=== PATIENT | female | born 1980 | race Caucasian/White ===

== ENCOUNTER 2016-08-21 17:18 | Emergency (ER) | payer OTHER ==
[~2016-08-21] VITALS: Ht 162.6 cm; Wt 91.2 kg
[2016-08-21] MEDS ORDERED: PRED20TA PO (17:40)
[2016-08-21] MEDS ORDERED: methylPREDNISolone 1,000 MG, VIAL MATE ADAPTER 1 EACH in D5W 250 ML IV ONE (18:45)
[2016-08-21 19:17] LABS: BASO # 0.1 K/mm3 (0.0-0.2); BASO % 0.7 % (0.0-1.0); EOS # 0.2 K/mm3 (0.0-0.50); EOS % 1.4 % (0.0-3.0); LARGE UNSTAINED CELL # 0.1 K/mm3 (0.0-0.4); LARGE UNSTAINED CELL % 1.1 % (0.0-4.0); LYMPH # 3.7 K/mm3 (1.5-4.5); LYMPH % 27.7 % (24.0-44.0); MEAN CORPUSCULAR HEMOGLOBIN 31.9 pg (27.0-33.0); MEAN CORPUSCULAR HGB CONC 35.5 g/dl (32.0-36.5); MEAN CORPUSCULAR VOLUME 90.1 fl (80.0-96.0); MONO # 0.7 K/mm3 (0.0-0.8); MONO % 4.9 % (0.0-5.0); NEUTROPHILS # 8.5 K/mm3 (1.8-7.7); NEUTROPHILS % 64.2 % (36.0-66.0); PLATELET COUNT, AUTOMATED 266 k/mm3 (150-450); RED CELL DISTRIBUTION WIDTH 11.9 % (11.5-14.5); WHITE BLOOD COUNT 13.3 K/mm3 (4.0-10.0)
[2016-08-21 20:08] LABS: ERYTHROCYTE SEDIMENTATION RATE 24 mm/hr (0-20)
--- NOTE | 2016-08-21 21:30 | REPUSA ---
CLINICAL HISTORY: Acute retrobulbar optic neuritis right eye. TECHNIQUE: MRI of the brain was performed utilizing multiple sequences in axial, coronal and sagitta l planes without and with IV contrast material. Diffusion weighted sequences obtained. COMMENTS: The sella and parasellar region are unremarkable in appearance. The corpus callosum and cerebellar t onsils are of normal configuration and position. There are no intra or extra-axial collections. The re is no mass effect or midline shift. There is no evidence of hematoma formation. There is no hydr ocephalus. There is no evidence of restricted diffusion. The visualized arterial structures demonstrate normal appearing flow voids. The seventh and eighth n erve bundles are visualized and are unremarkable in appearance. There is no suspicious signal abnorm ality in the infra or supratentorial space. Note is made of numerous foci of T2 and FLAIR hyperintensity in the periventricular and subcortical w vlad matter. There is also involvement of corpus callosum.Some lesions demonstrate perpendicular conf iguration with respect to lateral ventricles. The lesion measures up to 10 mm in length. These are most compatible with demyelinating disease. On post gadolinium sequences, note is made of enhancement of several lesions especially in the right frontoparietal lobe. This is compatible with grossly acu te or subacute process. There is minimal mucosal thickening involving bilateral ethmoid and maxillary sinus compatible with m ild sinusitis. IMPRESSION: Findings most compatible with demyelinating disease, acute vs subacute. Clinical correlation is rec ommended. Thank you for your kind referral of this patient. We appreciate the opportunity to participate in thi s patient's care.
--- NOTE | 2016-08-21 21:30 | REPUSA ---
CLINICAL HISTORY: ACUTE RETOBULBAR OPTIC NEURITIS RT EYE TECHNIQUE: MRI of the orbits was performed utilizing multiple sequences in axial, coronal and sagitta l planes without and with IV contrast material. COMMENTS: The sella and parasellar region are unremarkable in appearance. The corpus callosum and cerebellar to nsils are of normal configuration and position. There are no intra or extra-axial collections. There is no mass effect or midline shift. There is no evidence of hematoma formation. There is no hydroceph alus. The visualized arterial structures demonstrate normal appearing flow voids. The seventh and eighth ne rve bundles are visualized and are unremarkable in appearance. There are no suspicious signal abnorma lities within the infra or supratentorial space. The globes of the eyes disclose bilaterally symmetrical size and shape and normal appearance of the v arious layers. The intraocular lenses and the vitreous are unremarkable. The orbits show bilaterally symmetrical shape. The orbital fat and the intraorbital portions of the optic nerves are bilaterally symmetric and normal in size, shape and course. The extraocular muscles are unremarkable. Note is made of numerous foci of T2 and FLAIR hyperintensity in the periventricular and subcortical white matter. There is also involvement of corpus callosum.Some lesions demonstrate perpendicular configuration with respect to lateral ventricles. The lesion measures up to 10 mm in length. These are most compatible with demyelinating disease. On post gadolinium sequences, note is made of enhancement of several lesions especially in the right frontoparietal lobe. This is compatible with grossly acute or subacute process. The intracranial visual pathways show no abnormality. The optic chiasm and visualized portions of the optic tracts are normal. There is minimal mucosal thickening involving bilateral ethmoid and maxillary sinus compatible with m ild sinusitis. IMPRESSION: Sinusitis. The eyes, including the intraorbital portions of the optic nerves and the extraocular muscles are nor mal and symmetrical. Findings most compatible with demyelinating disease, acute vs subacute. Clinical correlation is recommended. Thank you for your kind referral of this patient.(
[2016-08-21 21:44] LABS: ANION GAP 8 MEQ/L (8-16); BLOOD UREA NITROGEN 12 MG/DL (7-18); CALCIUM LEVEL 8.7 MG/DL (8.5-10.1); CARBON DIOXIDE LEVEL 25 MEQ/L (21-32); CHLORIDE LEVEL 103 MEQ/L (98-107); CREATININE FOR GFR 0.86 MG/DL (0.55-1.02); GLOMERULAR FILTRATION RATE > 60.0 (>60); GLUCOSE, FASTING 82 MG/DL (70-105); POTASSIUM SERUM 3.8 MEQ/L (3.5-5.1); SODIUM LEVEL 136 MEQ/L (136-145)
[2016-08-21 21:59] VITALS: BP 138/72
[2016-08-24 00:06] LABS: Lyme Disease IgG/IgM Antibodie <0.91 ISR (0.00-0.90); Lyme Disease IgM Ab Quantitati <0.80 index (0.00-0.79); T PALLIDUM AB (FTA-AB) Non Reactive (Non Reactive)
== END 2016-08-21 22:05 | disposition home or self-care (01) ==
LOC: M ED 18:01
DX: H46.11 Retrobulbar neuritis, right eye (principal)
CPT/HCPCS: 70543; 70553; 80048; 83520; 85025; 85652; 86617; 86780; 96374; 99283; A9576; J2930

== ENCOUNTER 2016-08-22 17:37 | Emergency (ER) | payer OTHER ==
[~2016-08-22] VITALS: Ht 162.6 cm; Wt 91.6 kg
[~2016-08-22 17:37] MED LIST: PRED20TA PO
[2016-08-22] MEDS ORDERED: methylPREDNISolone 1,000 MG, VIAL MATE ADAPTER 1 EACH in D5W 250 ML IV ONE (18:15)
[2016-08-22 20:06] VITALS: BP 128/80
== END 2016-08-22 20:12 | disposition home or self-care (01) ==
LOC: M ED 18:13
DX: H46.9 Unspecified optic neuritis (principal); G37.9 Demyelinating disease of central nervous system, unspecified; R51 Headache; Z87.891 Personal history of nicotine dependence
CPT/HCPCS: 96374; 99283; J2930

== ENCOUNTER 2016-08-23 17:46 | Emergency (ER) | payer OTHER ==
[~2016-08-23] VITALS: Ht 162.6 cm; Wt 92.1 kg
[2016-08-23] MEDS ORDERED: methylPREDNISolone INJ 125 MG/2 ML VIAL (J2930) IV ONE (18:30)
[2016-08-23] MEDS ORDERED: methylPREDNISolone 1,000 MG, VIAL MATE ADAPTER 1 EACH in D5W 250 ML IV ONE (18:45)
[2016-08-23 19:52] VITALS: BP 132/83
== END 2016-08-23 19:53 | disposition home or self-care (01) ==
LOC: M ED 19:15
DX: H46.9 Unspecified optic neuritis (principal); Z79.2 Long term (current) use of antibiotics
CPT/HCPCS: 96365; 99283; J2930

== ENCOUNTER → 2016-09-16 | Outpatient (REF) | payer OTHER ==
[2016-09-16 09:57] LABS: BASO % 0.3 % (0.0-1.0); EOS # 0.2 K/mm3 (0.0-0.50); EOS % 3.1 % (0.0-3.0); LARGE UNSTAINED CELL # 0.1 K/mm3 (0.0-0.4); LYMPH # 2.5 K/mm3 (1.5-4.5); LYMPH % 31.6 % (24.0-44.0); MEAN CORPUSCULAR HEMOGLOBIN 31.1 pg (27.0-33.0); MEAN CORPUSCULAR HGB CONC 33.3 g/dl (32.0-36.5); MEAN CORPUSCULAR VOLUME 93.3 fl (80.0-96.0); MONO # 0.3 K/mm3 (0.0-0.8); MONO % 4.4 % (0.0-5.0); NEUTROPHILS # 4.6 K/mm3 (1.8-7.7); NEUTROPHILS % 59.6 % (36.0-66.0); PLATELET COUNT, AUTOMATED 229 k/mm3 (150-450); RED CELL DISTRIBUTION WIDTH 12.6 % (11.5-14.5); WHITE BLOOD COUNT 7.8 K/mm3 (4.0-10.0)
[2016-09-16 10:34] LABS: ERYTHROCYTE SEDIMENTATION RATE 35 mm/hr (0-20)
[2016-09-16 10:43] LABS: FOLATE > 24.0 NG/ML; VITAMIN B12 LEVEL 298 PG/ML
[2016-09-16 10:58] LABS: ALBUMIN 3.3 GM/DL (3.2-5.2); ALKALINE PHOSPHATASE 99 U/L (45-117); ALT/SGPT 34 U/L (12-78); ANION GAP 12 MEQ/L (8-16); AST/SGOT 10 U/L (15-37); BILIRUBIN,TOTAL 0.8 MG/DL (0.2-1.0); BLOOD UREA NITROGEN 12 MG/DL (7-18); CALCIUM LEVEL 8.8 MG/DL (8.5-10.1); CARBON DIOXIDE LEVEL 20 MEQ/L (21-32); CHLORIDE LEVEL 109 MEQ/L (98-107); CREATININE FOR GFR 0.96 MG/DL (0.55-1.02); GLOMERULAR FILTRATION RATE > 60.0 (>60); GLUCOSE, FASTING 160 MG/DL (70-105); POTASSIUM SERUM 3.7 MEQ/L (3.5-5.1); SODIUM LEVEL 141 MEQ/L (136-145); TOTAL PROTEIN 6.6 GM/DL (6.4-8.2)
[2016-09-19 14:14] LABS: Lyme Disease IgG/IgM Antibodie <0.91 ISR (0.00-0.90); Lyme Disease IgM Ab Quantitati <0.80 index (0.00-0.79); SJOGREN'S ANTI SS-A <0.2 AI (0.0-0.9); SJOGREN'S ANTI SS-B <0.2 AI (0.0-0.9); VITAMIN E LEVEL 17.6 mg/L (5.3-16.8)
== END ==
LOC: M LABNEURO 09:07
PROVIDERS: ATTEND Psychiatry & Neurology Neurology
DX: G37.9 Demyelinating disease of central nervous system, unspecified (principal); H46.9 Unspecified optic neuritis; Z11.59 Encounter for screening for other viral diseases; Z13.29 Encounter for screening for other suspected endocrine disorder

== ENCOUNTER → 2017-02-25 | Outpatient (REF) | payer OTHER | LOC: M LABNEURO 15:20 | PROVIDERS: ATTEND Psychiatry & Neurology Neurology | DX: E55.9 Vitamin D deficiency, unspecified (principal) ==

== ENCOUNTER → 2017-10-08 | Outpatient (REF) | payer OTHER ==
[2017-10-08 18:17] LABS: TOTAL 25(OH) VITAMIN D 22.7 NG/ML (30.0-100.0)
== END ==
LOC: M LABNEURO 11:58
DX: E55.9 Vitamin D deficiency, unspecified (principal)

== ENCOUNTER → 2018-03-05 | Outpatient (REF) | payer OTHER | LOC: M LABNEURO 13:57 | PROVIDERS: ATTEND Psychiatry & Neurology Neurology | DX: E55.9 Vitamin D deficiency, unspecified (principal) ==

== ENCOUNTER → 2019-01-20 | Outpatient (REF) | payer OTHER ==
[2019-01-20 14:18] LABS: BASO % 0.3 % (0.0-1.0); EOS # 0.2 10^3/uL (0.0-0.5); EOS % 2.7 % (0.0-3.0); HEMATOCRIT 40.9 % (36.0-47.0); HEMOGLOBIN 13.1 g/dl (12.0-15.5); LYMPH # 2.1 10^3/uL (1.5-5.0); LYMPH % 29.2 % (24.0-44.0); MEAN CORPUSCULAR HEMOGLOBIN 31.1 pg (27.0-33.0); MEAN CORPUSCULAR VOLUME 97.1 fl (80.0-96.0); MONO # 0.5 10^3/uL (0.0-0.8); MONO % 7.1 % (0.0-5.0); NEUTROPHILS # 4.3 10^3/uL (1.5-8.5); NEUTROPHILS % 60.4 % (36.0-66.0); PLATELET COUNT, AUTOMATED 224 10^3/uL (150-450); RED BLOOD COUNT 4.21 10^6/uL (4.00-5.40); WHITE BLOOD COUNT 7.2 10^3/uL (4.0-10.0)
[2019-01-20 14:26] LABS: ALBUMIN 3.5 GM/DL (3.2-5.2); ALT/SGPT 30 U/L (12-78); BILIRUBIN,TOTAL 0.5 MG/DL (0.2-1.0); BLOOD UREA NITROGEN 14 MG/DL (7-18); CALCIUM LEVEL 8.1 MG/DL (8.5-10.1); CARBON DIOXIDE LEVEL 27 MEQ/L (21-32); CHLORIDE LEVEL 108 MEQ/L (98-107); CHOLESTEROL LEVEL 191 MG/DL (<200); CHOLESTEROL RISK RATIO 3.183 (<5); GLOMERULAR FILTRATION RATE > 60.0 (>58); GLUCOSE, FASTING 82 MG/DL (70-100); HDL CHOLESTEROL 60 MG/DL (>40); LDL CHOLESTEROL 119 MG/DL (<100); NON-HDL-C 131 MG/DL; POTASSIUM SERUM 4.3 MEQ/L (3.5-5.1); SODIUM LEVEL 140 MEQ/L (136-145); TOTAL PROTEIN 6.3 GM/DL (6.4-8.2); TRIGLYCERIDES LEVEL 61 MG/DL (<150)
[2019-01-20 14:30] LABS: TOTAL 25(OH) VITAMIN D 69.3 NG/ML (30.0-100.0)
[2019-01-20 14:37] LABS: HEMOGLOBIN A1c 4.9 %
== END ==
LOC: M LABNEURO 09:03
PROVIDERS: ATTEND Psychiatry & Neurology Neurology
DX: G35 Multiple sclerosis (principal); E11.9 Type 2 diabetes mellitus without complications; E07.9 Disorder of thyroid, unspecified; E55.9 Vitamin D deficiency, unspecified

== ENCOUNTER 2020-10-27 15:04 | Outpatient (CLI) | payer BC, OTHER ==
[~2020-10-27] VITALS: Ht 162.6 cm; Wt 88.0 kg
[2020-10-27 15:20] VITALS: BP 145/72
[2020-10-27] MEDS ORDERED: methylPREDNISolone 1,000 MG, VIAL MATE ADAPTER 1 EACH in NS 250 ML IV ONE (15:45)
[2020-10-27 16:33] VITALS: BP 160/70
[2020-10-27 16:55] VITALS: BP 141/99
== END 2020-10-27 17:00 | disposition home or self-care (01) ==
LOC: M INFU 15:04
PROVIDERS: ATTEND Psychiatry & Neurology Neurology
DX: G35 Multiple sclerosis (principal)
CPT/HCPCS: 96365; J2930

== ENCOUNTER 2020-10-28 12:44 | Outpatient (CLI) | payer BC ==
[2020-10-28] MEDS ORDERED: methylPREDNISolone 1,000 MG, VIAL MATE ADAPTER 1 EACH in NS 250 ML IV ONE (13:30)
== END 2020-10-28 14:30 | disposition home or self-care (01) ==
LOC: M OPCLI5PR 12:44 → M INFU 12:44 → M MS5PR 12:52 → M INFU 14:30
PROVIDERS: ATTEND Psychiatry & Neurology Neurology
DX: G35 Multiple sclerosis (principal)
CPT/HCPCS: 96365; J2930

== ENCOUNTER 2020-10-29 13:39 | Outpatient (CLI) | payer BC ==
[2020-10-29] MEDS ORDERED: methylPREDNISolone 1,000 MG, VIAL MATE ADAPTER 1 EACH in NS 250 ML IV ONE (14:30)
== END 2020-10-29 15:35 ==
LOC: M INFU 13:39 → M MS5PR 14:12 → M INFU 15:35
PROVIDERS: ATTEND Psychiatry & Neurology Neurology
DX: G35 Multiple sclerosis (principal)
CPT/HCPCS: 96374; J2930

== ENCOUNTER 2020-10-30 15:04 | Outpatient (CLI) | payer BC, OTHER ==
[~2020-10-30] VITALS: Ht 160 cm; Wt 118.1 kg
[2020-10-30 15:10] VITALS: BP 168/88
[2020-10-30] MEDS ORDERED: methylPREDNISolone 1,000 MG, VIAL MATE ADAPTER 1 EACH in NS 250 ML IV ONE (15:30)
[2020-10-30 16:45] VITALS: BP 139/77
== END 2020-10-30 16:45 | disposition home or self-care (01) ==
LOC: M INFU 15:04
PROVIDERS: ATTEND Psychiatry & Neurology Neurology
DX: G35 Multiple sclerosis (principal)
CPT/HCPCS: 96365; J2930

== ENCOUNTER 2020-10-31 15:21 | Outpatient (CLI) | payer BC, OTHER ==
[~2020-10-31] VITALS: Ht 160 cm; Wt 118.0 kg
[2020-10-31] MEDS ORDERED: methylPREDNISolone 1,000 MG, VIAL MATE ADAPTER 1 EACH in NS 250 ML IV ONE (15:30)
[2020-10-31 15:42] VITALS: BP 149/83
[2020-10-31 16:45] VITALS: BP 137/85
== END 2020-10-31 16:45 | disposition home or self-care (01) ==
LOC: M INFU 15:21
PROVIDERS: ATTEND Psychiatry & Neurology Neurology
DX: G35 Multiple sclerosis (principal)
CPT/HCPCS: 96365; J2930

== ENCOUNTER 2021-04-06 16:49 | Outpatient (CLI) | payer BC ==
[~2021-04-06] VITALS: Ht 162.6 cm; Wt 79.5 kg
[2021-04-06 18:45] VITALS: BP 164/97
== END 2021-04-06 18:45 | disposition home or self-care (01) ==
LOC: M INFU 16:49
PROVIDERS: ATTEND Psychiatry & Neurology Neurology
DX: G35 Multiple sclerosis (principal)
CPT/HCPCS: 96365; J2930

== ENCOUNTER 2021-04-07 10:19 | Outpatient (CLI) | payer BC, OTHER ==
[~2021-04-07] VITALS: Ht 160 cm; Wt 79.3 kg
[2021-04-07] MEDS ORDERED: methylPREDNISolone 1,000 MG, VIAL MATE ADAPTER 1 EACH in NS 250 ML IV ONE (11:00)
== END 2021-04-07 12:30 | disposition home or self-care (01) ==
LOC: M OPCLI5PR 10:19 → M MS5PR 10:30 → M OPCLI5PR 12:30
PROVIDERS: ATTEND Psychiatry & Neurology Neurology
DX: G35 Multiple sclerosis (principal)
CPT/HCPCS: 96365; 96366; J2930

== ENCOUNTER 2021-04-08 10:07 | Outpatient (CLI) | payer BC, OTHER ==
[~2021-04-08] VITALS: Ht 160 cm; Wt 79.5 kg
[2021-04-08] MEDS ORDERED: methylPREDNISolone 1,000 MG, VIAL MATE ADAPTER 1 EACH in NS 250 ML IV ONE (11:30)
== END 2021-04-08 12:50 | disposition home or self-care (01) ==
LOC: M OPCLI5PR 10:07 → M MS5PR 10:34 → M OPCLI5PR 12:50
PROVIDERS: ATTEND Psychiatry & Neurology Neurology
DX: G35 Multiple sclerosis (principal)
CPT/HCPCS: 96365; J2930

== ENCOUNTER 2021-04-09 14:13 | Outpatient (CLI) | payer OTHER ==
[~2021-04-09] VITALS: Ht 160 cm; Wt 118.0 kg
[2021-04-09 14:30] VITALS: BP 159/88
[2021-04-09] MEDS ORDERED: methylPREDNISolone 1,000 MG, VIAL MATE ADAPTER 1 EACH in NS 250 ML IV ONE (14:30)
[2021-04-09 15:45] VITALS: BP 160/87
== END 2021-04-09 15:45 | disposition home or self-care (01) ==
LOC: M INFU 14:13
PROVIDERS: ATTEND Psychiatry & Neurology Neurology
DX: G35 Multiple sclerosis (principal)
CPT/HCPCS: 96365; J2930

== ENCOUNTER 2021-04-10 15:00 | Outpatient (CLI) | payer OTHER ==
[~2021-04-10 15:00] MED LIST changes: +methylPREDNISolone 1,000 MG, VIAL MATE ADAPTER 1 EACH in NS 250 ML IV ONE
[2021-04-10 15:13] VITALS: BP 153/86
[2021-04-10 16:14] VITALS: BP 146/82
== END 2021-04-10 16:17 | disposition home or self-care (01) ==
LOC: M INFU 15:00
PROVIDERS: ATTEND Psychiatry & Neurology Neurology
DX: G35 Multiple sclerosis (principal)
CPT/HCPCS: 96365; J2930

== ENCOUNTER 2022-01-14 14:05 | Outpatient (CLI) | payer OTHER ==
[~2022-01-14] VITALS: Ht 162.6 cm; Wt 90.9 kg
[~2022-01-14 14:05] MED LIST changes: -methylPREDNISolone 1,000 MG, VIAL MATE ADAPTER 1 EACH in NS 250 ML IV ONE
[2022-01-14 14:15] VITALS: BP 134/82
[2022-01-14] MEDS ORDERED: methylPREDNISolone 1,000 MG, VIAL MATE ADAPTER 1 EACH in NS 250 ML IV ONE (14:30)
[2022-01-14] MEDS ORDERED: COPA1INJ SC (14:35)
[2022-01-14] MEDS ORDERED: EXCETAB32 PO (14:35)
[2022-01-14] MEDS ORDERED: PRED20TA PO (14:35)
[2022-01-14 15:35] VITALS: BP 144/88
== END 2022-01-14 15:35 | disposition home or self-care (01) ==
LOC: M INFU 14:05
PROVIDERS: ATTEND Psychiatry & Neurology Neurology
DX: G35 Multiple sclerosis (principal)

== ENCOUNTER 2022-01-15 14:05 | Outpatient (CLI) | payer OTHER ==
[~2022-01-15] VITALS: Ht 162.6 cm; Wt 90.9 kg
[~2022-01-15 14:05] MED LIST changes: +COPA1INJ SC; +EXCETAB32 PO
[2022-01-15 14:26] VITALS: BP 159/92
[2022-01-15] MEDS ORDERED: methylPREDNISolone 1,000 MG, VIAL MATE ADAPTER 1 EACH in NS 250 ML IV ONE (14:30)
[2022-01-15 15:31] VITALS: BP 158/87
== END 2022-01-15 15:30 | disposition home or self-care (01) ==
LOC: M INFU 14:05
PROVIDERS: ATTEND Psychiatry & Neurology Neurology
DX: G35 Multiple sclerosis (principal)
CPT/HCPCS: 96365; J2930

== ENCOUNTER 2022-01-16 14:30 | Outpatient (CLI) | payer OTHER ==
[~2022-01-16 14:30] MED LIST changes: +methylPREDNISolone 1,000 MG, VIAL MATE ADAPTER 1 EACH in NS 250 ML IV ONE
[2022-01-16 15:22] VITALS: BP 149/91
== END 2022-01-16 15:45 | disposition home or self-care (01) ==
LOC: M INFU 14:30
PROVIDERS: ATTEND Psychiatry & Neurology Neurology
DX: G35 Multiple sclerosis (principal)
CPT/HCPCS: 96365; J2930

== ENCOUNTER 2022-01-17 13:35 | Outpatient (CLI) | payer OTHER ==
[~2022-01-17] VITALS: Ht 162.6 cm; Wt 90.0 kg
[2022-01-17 13:42] VITALS: BP 140/90
[2022-01-17 14:56] VITALS: BP 160/88
== END 2022-01-17 14:55 | disposition home or self-care (01) ==
LOC: M INFU 13:35
PROVIDERS: ATTEND Psychiatry & Neurology Neurology
DX: G35 Multiple sclerosis (principal)
CPT/HCPCS: 96365; J2930

== ENCOUNTER 2022-01-18 14:30 | Outpatient (CLI) | payer OTHER ==
[~2022-01-18] VITALS: Ht 162.6 cm; Wt 90.9 kg
[2022-01-18 14:30] VITALS: BP 137/84
[2022-01-18 15:45] VITALS: BP 146/85
== END 2022-01-18 15:45 | disposition home or self-care (01) ==
LOC: M INFU 14:30
PROVIDERS: ATTEND Psychiatry & Neurology Neurology
DX: G35 Multiple sclerosis (principal)
CPT/HCPCS: 96365; J2930

== ENCOUNTER → 2023-06-30 | Outpatient (CLI) | payer BC ==
[~2023-06-30] MED LIST changes: -methylPREDNISolone 1,000 MG, VIAL MATE ADAPTER 1 EACH in NS 250 ML IV ONE
[2023-06-30 14:11] LABS: BASO % 0.3 % (0.0-1.0); EOS # 0.2 10^3/uL (0.0-0.5); EOS % 2.2 % (0.0-3.0); HEMATOCRIT 38.8 % (36.0-47.0); HEMOGLOBIN 12.4 g/dl (12.0-15.5); LYMPH # 2.8 10^3/uL (1.5-5.0); LYMPH % 30.6 % (24.0-44.0); MEAN CORPUSCULAR HEMOGLOBIN 29.7 pg (27.0-33.0); MEAN CORPUSCULAR VOLUME 92.8 fl (80.0-96.0); MONO # 0.6 10^3/uL (0.0-0.8); MONO % 7.1 % (2.0-8.0); NEUTROPHILS # 5.3 10^3/uL (1.5-8.5); NEUTROPHILS % 59.1 % (36.0-66.0); PLATELET COUNT, AUTOMATED 249 10^3/uL (150-450); RED BLOOD COUNT 4.18 10^6/uL (4.00-5.40)
[2023-06-30 14:34] LABS: ALBUMIN 2.9 G/DL (3.2-5.2); ALKALINE PHOSPHATASE 124 U/L (46-116); ALT/SGPT 26 U/L (7.0-40); AST/SGOT 13 U/L (<34); BILIRUBIN,TOTAL 0.3 MG/DL (0.3-1.2); BLOOD UREA NITROGEN 11 MG/DL (9-23); CALCIUM LEVEL 8.8 MG/DL (8.5-10.1); CARBON DIOXIDE LEVEL 28 MMOL/L (20-31); CHLORIDE LEVEL 106 MMOL/L (98-107); CREATININE FOR GFR 0.87 MG/DL (0.55-1.30); GLOMERULAR FILTRATION RATE > 60.0 (>58); GLUCOSE, FASTING 110 MG/DL (60-100); POTASSIUM SERUM 4.1 MMOL/L (3.5-5.1); SODIUM LEVEL 140 MMOL/L (136-145); TOTAL PROTEIN 5.8 G/DL (5.7-8.2)
[2023-06-30 14:36] LABS: FOLATE 8.5 NG/ML (>5.4); FREE T4 0.98 NG/DL (0.89-1.76); THYROID STIMULATING HORMONE 2.995 uIU/ML (0.55-4.78); TOTAL 25(OH) VITAMIN D 24.3 NG/ML (20.0-100.0)
[2023-06-30 14:56] LABS: VITAMIN B12 LEVEL 367 PG/ML (211-911)
== END ==
LOC: M LAB 13:07
PROVIDERS: ATTEND Psychiatry & Neurology Neurology
DX: E11.9 Type 2 diabetes mellitus without complications (principal); E07.9 Disorder of thyroid, unspecified; G35 Multiple sclerosis; E53.8 Deficiency of other specified B group vitamins